=== PATIENT | female | born 1975 | race Caucasian/White ===

== ENCOUNTER 2018-11-16 12:28 | Observation (INO) ==
[2018-11-16] MEDS ORDERED: NITROGLYCERIN ONE (12:50)
[2018-11-16] MEDS ORDERED: ASPIRIN ONE (12:50)
[2018-11-16] MEDS ORDERED: ASPIRIN PO ONE (13:14)
[2018-11-16] MEDS: NITROGLYCERIN SL PRN ×2 (13:15→13:20)
--- NOTE | 2018-11-16 13:28 | EKG Report ---
Test Performed on : 11/16/2018 12:36:08 PM Test Reason : chest pain Blood Pressure : / mmHG Vent. Rate : 088 BPM Atrial Rate : 088 BPM P-R Int : 142 ms QRS Dur : 056 ms QT Int : 346 ms P-R-T Axes : 031 034 044 degrees QTc Int : 418 ms Normal sinus rhythm. Low voltage QRS Septal infarct (cited on or before 22-OCT-2014) Abnormal ECG When compared with ECG of 07-MAY-2018 08:13, Serial changes of Septal infarct present Unconfirmed Result
--- NOTE | 2018-11-16 13:53 | Diag Imaging Result Doc PS360 ---
EXAM: CHEST-2 VIEWS 11/16/2018 HISTORY: chest pain TECHNIQUE: PA and lateral chest COMMENT: There is no evidence of acute cardiac or pulmonary disease. There are sternotomy wires. IMPRESSION: Stable since 05/07/2018. Electronically signed by Hector Mccracken 11/16/2018 1:50 PM
[2018-11-16 14:06] LABS: BASO# 0.03 X1000 (0.0-0.2); BASO% 0.4 % (0.0-0.8); EOS# 0.22 X1000 (0.0-0.7); EOS% 2.6 % (0.0-10.0); HEMATOCRIT 37.5 % (37.0-47.0); HEMOGLOBIN 12.5 g/dL (12.0-16.0); LYMPH# 2.16 X1000 (1.2-3.4); LYMPH% 25.8 % (20.5-51.1); MCH 30.3 PG (27-31); MCHC 33.3 g/dL (33-37); MONO% 8.4 % (1.7-9.3); MPV 10.4 FL (7.4-10.4); NEUT# 5.27 X1000 (1.4-6.5); NEUT% 62.8 % (42.2-75.2); PLT 401 X1000 (130-400); RBC 4.12 XMIL (4.2-5.4); RDW 12.3 % (11.5-14.5); WBC 8.38 X1000 (4.8-10.8)
[2018-11-16 14:45] LABS: AGAP 14; ALB/GLOB RATIO 1.8; ALBUMIN 4.7 g/dL (3.5-5.0); ALKALINE PHOSPHATASE 59 U/L (32-104); BUN 7 mg/dL (8-22); CALCIUM 9.8 mg/dL (8.8-10.2); CHLORIDE 105 mmol/L (98-107); CK PROFILE 86 U/L (24-173); COSMO 280; CREATININE 0.7 mg/dL (0.5-0.9); ESTIMATED GFR > 60; GLUCOSE 119 mg/dL (70-104); GOT 22 U/L (10-30); GPT 30 U/L (10-36); POTASSIUM 4.7 mmol/L (3.5-5.1); SODIUM 141 mmol/L (136-145); TCO2 22 mmol/L (25-35); TOTAL BILIRUBIN 0.28 mg/dL (0.20-1.00); TOTAL PROTEIN 7.3 g/dL (6.3-8.3)
[2018-11-16 15:58] LABS: INR 0.93; PROTIME 13.3 Seconds (11.0-16.0)
[2018-11-16 16:07] LABS: PTT 27.4 Seconds (22.3-41.8)
[2018-11-16] MEDS ORDERED: TYLENOL PO PRN (16:55)
[2018-11-16] MEDS ORDERED: ZOFRAN IV PRN (16:55)
--- NOTE | 2018-11-16 19:29 | HISTORY AND PHYSICAL ---
CHIEF COMPLAINT: Chest pain. HISTORY OF PRESENT ILLNESS: A 43-year-old female with a past medical history of coronary artery disease, status post CABG; double bypass back in 2014. Apparently she had left main disease of 97%. Also, history of right leg DVT back in 2011 that required Coumadin therapy at that time. Also history of diabetes, back pain, hypothyroidism, GERD, dyslipidemia. Recently she had an endoscopic exam as an outpatient that apparently showed gastritis. She now presents with complaints of pressure-like chest pain that started around 12:00 today. She was doing minimal physical activity. The pain lasted for 1 hour, and actually got better after getting treatment with nitroglycerin. When she was in pain she took her blood pressure at home and it was around 157/89. The pain radiated to her neck and it was between her shoulder blades, associated with dizziness, shortness of breath and palpitations. She also stated probably she had some nausea in the morning. In the emergency department the troponin was negative x1, but we will continue checking the troponin again. EKG showed normal sinus rhythm, low voltage, but I do not see any ST changes at this moment. I will repeat an EKG in the morning. Laboratory is grossly normal. Chest x-ray stable. I will admit the patient. I will do serial CKs and troponin. I will repeat an EKG in the morning. I will continue with her home medications, and hopefully we can get a new stress test in the morning. Her previous stress test was normal a year ago, and she has been having multiple stress tests done before. PHYSICAL EXAMINATION: VITAL SIGNS: Temperature 98.1 degrees, pulse 84, respiratory rate 18, blood pressure 103/71, oxygen saturation 99% on room air. HEENT: Head normocephalic. No trauma. PERRLA. NECK: Supple. No JVD. No masses. Central trachea. CHEST: Clear to auscultation. No wheezing. No rales. ABDOMEN: Soft, nontender, nondistended. No hepatosplenomegaly. CARDIOVASCULAR: RRR. No murmurs. EXTREMITIES: No edema. No clubbing, no cyanosis. NEUROLOGICAL: The patient is completely alert and oriented x3. No focal deficits. REVIEW OF SYSTEMS: The patient has been complaining of some nasal discharge for the past couple days. All the 14-point review of systems were reviewed, all of them negative except as per HPI. The patient denies weight changes, headache, vomiting or diarrhea. PAST MEDICAL HISTORY: Chronic pain syndrome; seasonal allergies; anxiety; diabetes; coronary artery disease with CABG in 2015, I believe 2-vessel disease at that time; GERD; hypothyroidism; hyperlipidemia; history of DVT at the level of the right leg back in 2011, treated with Coumadin; recent endoscopy that showed gastritis. PAST SURGICAL HISTORY: Cholecystectomy, partial hysterectomy, lower back surgery, CABG x2 in 2015. SOCIAL HISTORY: She used to be a smoker, but she quit smoking in 2000. No alcohol. No drugs. She is . FAMILY HISTORY: Father with lung cancer, at the age of 60. Mother with coronary artery disease, hypertension. Grandfather at the age of 39 on her mother's side of the family with an MS. Also a great-grandfather at the age of 50 with MS as well. ALLERGIES: She is allergic to nitrofurantoin; phenazopyridine; morphine, apparently morphine causes hallucinations; adhesive tape; Pyridium. HOME MEDICATIONS: Ramipril 2.5 mg p.o. daily; aspirin 81 mg p.o. daily; Lipitor 20 mg p.o. daily; Synthroid 100 mcg p.o. daily; not sure about omeprazole and Janumet, pending medication reconciliation. LABORATORY DATA: WBC 8.3, hemoglobin 12.5, hematocrit 37.5, platelets 401,000. Sodium 141, potassium 4.7, chloride 105, bicarbonate 22, BUN 7, creatinine 0.7, glucose 119, calcium 9.8, AST 22, ALT 30, alkaline phosphatase 59. Troponin negative x1. Albumin 4.7. ASSESSMENT AND PLAN: 1. Pressure-like chest pain. This patient has a strong history of coronary artery disease, status post coronary artery bypass graft in 2014. She had a stress test done a year ago that was negative. Since then she has not had any kind of chest pain until today. I will do serial troponins, CK and electrocardiogram in the morning. I will probably get Cardiology Department in the morning to evaluate this patient. I will consult Cardiology, given her cardiac history and family history as well. She follows with Dr. Connolly as an outpatient, but she has not seen him for at least 1 year. I will get a stress test in the morning. 2. Diabetes. Continue to pattern blood sugar and sliding scale insulin. 3. Hypothyroidism. Continue with Synthroid. 4. Hyperlipidemia. Continue with statin. 5. Anxiety. We will monitor. 6. Deep venous thrombosis prophylaxis with Lovenox. cc: Ronald Renteria MD
[2018-11-16] MEDS: HUMALOG SUBQ SCH (21:00)
[2018-11-17] MEDS ORDERED: SYNTHROID PO SCH (07:00)
[2018-11-17 07:08] LABS: HEMOGLOBIN 11.8 g/dL (12.0-16.0); MCH 30.6 PG (27-31); MCHC 32.8 g/dL (33-37); MCV 93.3 FL (81-99); MPV 10.1 FL (7.4-10.4); RBC 3.86 XMIL (4.2-5.4); RDW 12.3 % (11.5-14.5); WBC 8.04 X1000 (4.8-10.8)
--- NOTE | 2018-11-17 07:30 | EKG Report ---
Test Performed on : 11/17/2018 06:58:48 AM Test Reason : chest pain Blood Pressure : / mmHG Vent. Rate : 064 BPM Atrial Rate : 064 BPM P-R Int : 146 ms QRS Dur : 072 ms QT Int : 416 ms P-R-T Axes : 022 049 069 degrees QTc Int : 429 ms Normal sinus rhythm. Low voltage QRS Septal infarct (cited on or before 22-OCT-2014) Abnormal ECG When compared with ECG of 16-NOV-2018 12:36, (Unconfirmed) Questionable change in initial forces of Septal leads Nonspecific T wave abnormality, worse in Anterior leads Confirmed by Lilliam MONTANO, Tom ([id number]) on 11/17/2018 8:54:36 AM
[2018-11-17 07:45] LABS: AGAP 15; ALB/GLOB RATIO 1.5; ALKALINE PHOSPHATASE 50 U/L (32-104); BUN 10 mg/dL (8-22); CALCIUM 9.2 mg/dL (8.8-10.2); CHLORIDE 106 mmol/L (98-107); COSMO 282; CREATININE 0.6 mg/dL (0.5-0.9); ESTIMATED GFR > 60; GLUCOSE 122 mg/dL (70-104); GOT 19 U/L (10-30); GPT 26 U/L (10-36); POTASSIUM 4.4 mmol/L (3.5-5.1); SODIUM 141 mmol/L (136-145); TCO2 20 mmol/L (25-35); TOTAL BILIRUBIN 0.47 mg/dL (0.20-1.00); TOTAL PROTEIN 6.7 g/dL (6.3-8.3)
[2018-11-17] MEDS: HUMALOG SUBQ SCH ×3 (08:55→15:55)
[2018-11-17] MEDS ORDERED: LOVENOX SUBQ SCH (09:00)
[2018-11-17] MEDS ORDERED: ASPIRIN EC PO SCH (09:00)
[2018-11-17] MEDS ORDERED: PRILOSEC PO SCH (09:00)
[2018-11-17] MEDS ORDERED: LIPITOR PO SCH (09:00)
--- NOTE | 2018-11-17 09:50 | PROGRESS NOTE ---
DATE: 11/17/2018 SUBJECTIVE: This patient is feeling good today, some chest discomfort this morning, but she believes it is because of the nasal congestion that she has been having. I have requested a stress test to be done today. Cardiology Department has been consulted. Troponin's negative, and I do not see any EKG changes. OBJECTIVE: Vital Signs: Temperature 98.3 degrees, pulse 68, respiratory rate 16, blood pressure 85/65 and oxygen saturation 100% on room air. HEENT: Head normocephalic. No trauma. PERRLA. Neck: Supple. No JVD. No masses. Central trachea. Chest: Clear to auscultation. No wheezing. No rales. Abdomen: Soft, nontender, nondistended. No hepatosplenomegaly. Extremities: No edema. No clubbing. No cyanosis. Neurologic: Patient is alert and oriented x3. No focal deficits. LABORATORY: WBC 8.0, hemoglobin 11.8, hematocrit 36, and platelet 317,000. Sodium 141, potassium 4.4, chloride 106, bicarbonate 20, BUN 10, creatinine 0.6, glucose 122, and calcium 9.2. Troponin's negative x3. ASSESSMENT AND PLAN: 1. Pressure-like chest pain, pending a stress test today. She has not been complaining of strong symptoms during the night. No acute events. Troponin's have been negative x3. Given her medical presentation and past medical history, I have consulted Cardiology Department for evaluation. 2. Type 2 diabetes. Continue with pattern of blood sugar and sliding scale insulin. 3. Hypothyroidism. Continue with Synthroid. 4. Hyperlipidemia. Continue with statins. 5. Anxiety. We will monitor. 6. Deep vein thrombosis prophylaxis with Lovenox. cc: Ronald Renteria MD
--- NOTE | 2018-11-17 12:05 | PROVIDER DOCUMENTATION ---
This chart was entered by Radha Rojas Scribe, acting as scribe for Rik Powell MD. HPI-Chest Pain - General Chief Complaint: Chest Pain Stated Complaint: CHEST TIGHTNESS,SOB,HIGH BP Time Seen by Provider: 11/16/18 12:44 Source: patient Allergies/Adverse Reactions: Patient Allergies Allergy/AdvReac Type Severity Reaction Status Date / Time nitrofurantoin Allergy Unknown Unknown Verified 05/07/18 04:51 [From Macrobid] nitrofurantoin Allergy Unknown Unknown Verified 05/07/18 04:51 macrocrystalline * [From Macrobid] phenazopyridine HCl * Allergy Unknown Unknown Verified 05/07/18 04:51 [From Pyridium] morphine Allergy Unknown Verified 05/07/18 04:51 adhesive tape AdvReac RASH Verified 05/07/18 04:51 Home Medications: Home Medication List Medication Instructions Recorded Confirmed Last Taken Type Aspirin EC 81 mg PO DAILY 10/20/15 10/13/17 05/22/16 07:00 History Atorvastatin Calcium 20 mg PO DAILY 10/20/15 10/13/17 05/22/16 History Levothyroxine [Synthroid] 75 microgm PO DAILY 10/20/15 10/13/17 05/22/16 07:00 History Omeprazole 40 mg PO DAILY 10/13/17 10/13/17 Unknown History Sitagliptin Phos/Metformin HCl 1 tab PO DAILY 10/13/17 10/13/17 Unknown History [Janumet 50-500 mg Tablet] - History of Present Illness-CP Nature of Presenting Problem: 43 yof presents to the ed with c/o chest pain onset 30 min [employer]. pt on exam is nontoxic in appearance and has hx of CABG Location: reports: substernal Chest Pain Radiation: reports: no radiation Quality of Pain: reports: tightness Severity in ED: moderate Onset/Duration: 1/2 hour ago Timing: still present, improving Context/Activities at Onset: reports: light activity Modifying Factors: improves with: nothing. worse with: exercise Associated Symptoms: reports: shortness of breath. denies: diaphoresis, fever/chills, headache, nausea, vomiting, weakness Nitro Today/Relief: 0.4 mg x 1, provided by ED (sublingual) Aspirin Treatment Today: 325 mg x 1, provided by ED Similar Symptoms Previously?: Yes Recently Seen Here or By Another Healthcare Provider: Yes Review of Systems - Adult - REVIEW OF SYSTEMS - ADULT Constitutional: denies: chills, fever Eyes: reports: no symptoms reported Ears, Nose, Mouth & Throat: reports: no symptoms reported Cardiovascular: reports: see HPI, chest pain. denies: palpitations, syncope Respiratory: reports: shortness of breath. denies: cough, wheezing Gastrointestinal: denies: abdominal pain, diarrhea, nausea, vomiting Genitourinary: reports: no symptoms reported Musculoskeletal: denies: back pain, neck pain Integumentary: reports: no symptoms reported Neurological: denies: dizziness/vertigo, headache/migraines Psychiatric: reports: no symptoms reported Endocrine: reports: no symptoms reported Hematologic/Lymphatic: reports: no symptoms reported Allergic/Immunologic: reports: no symptoms reported All Other Systems: Reviewed and Negative Past History - Adult - PAST MEDICAL HISTORY-ADULT Review of Records: reports: Old Records Reviewed, Nursing Assessment Review, Medications Reviewed, Social history reviewed & non-contributory. Major Childhood Illnesses: reports: denies history Cardiovascular: reports: blood clots, CAD, HTN, hyperlipidemia, MD, other (Protein S deficiency ) Respiratory: reports: denies history Gastrointestinal: reports: denies history Obstetrical/Gynecological: reports: denies history Genitourinary: reports: chronic UTI's (improved after stopping caffeine use) Musculoskeletal: reports: denies history Neurological: reports: denies history Psychiatric: reports: anxiety, depression Endocrine/Immune: reports: Diabetes, thyroid disorder Other Conditions: reports: denies history - PRIOR SURGERIES/PROCEDURES Surgical/Procedure History: reports: CABG, cholecystectomy, hysterectomy, back/neck (SI joint fusion on right) - IMMUNIZATION STATUS Childhood Immunizations: See Nurse Assessment Flu Vaccine: See Nurse Assessment - FAMILY HISTORY Family History: reviewed, not pertinent - SOCIAL HISTORY Smoking: quit less than 1 year Substance Use: denies Living Situation: family Physical Exam-General - PHYSICAL EXAM-ADULT Initial Vital Signs Reviewed: Yes - CONSTITUTIONAL General Appearance: appears well, alert, no apparent distress - EYES Eyes: PERRL/EOMI, pink conjunctivae - HEAD, EARS, NOSE, MOUTH & THROAT HENMT: moist mucous membranes, normal ENT inspection - NECK Neck: non-tender, full range of motion, supple, normal inspection - RESPIRATORY Respiratory: chest non-tender, lungs clear, normal breath sounds - CARDIOVASCULAR Cardiovascular: normal peripheral pulses, regular rate, rhythm, other (well healed cabg scar on chest) - GASTROINTESTINAL (ABDOMEN) Abdominal Exam: normal bowel sounds, non tender, soft, no organomegaly, no pulsatile mass - LYMPHATIC Lymphatic: no adenopathy - MUSCULOSKELETAL Back Exam: normal inspection, no CVA tenderness, no vertebral tenderness Extremity: normal range of motion, non-tender, normal gait, normal inspection, no pedal edema, no calf tenderness, normal capillary refill, pelvis stable - SKIN Integumentary: normal color, normal turgor, warm/dry - NEUROLOGIC Neurologic: grossly normal, no motor/sensory deficits - PSYCHIATRIC Psych/Mental Status: normal mood/affect, normal thought content, normal thought process, oriented x 3 - HEART Score HEART Score: History: Slightly Suspicious HEART Score: ECG: Non-Specific Repolarization Disturbance/LBBB/PM HEART Score: Age: < or = 45 Years HEART Score: Risk Factors for Atherosclerotic Disease: 1 or 2 Risk Factors HEART Score: Troponin: < or = Normal Limit Total HEART Score:: 2 Progress - PLAN OF CARE/RESULTS Progress/Plan/Lab Results: Vital Signs - 8 hr 11/16/18 13:25 Temperature 98.1 F Pulse Rate 84 Respiratory Rate 18 Blood Pressure 103/71 O2 Sat by Pulse Oximetry 99 Laboratory Results - last 24 hr 11/16/18 11/16/18 11/16/18 11:17 11:17 11:17 WBC 8.38 RBC 4.12 L Hgb 12.5 Hct 37.5 MCV 91.0 MCH 30.3 MCHC 33.3 RDW Std Deviation 12.3 Plt Count 401 H MPV 10.4 Immature Gran % (Auto) 0.0 Neut % (Auto) 62.8 Lymph % (Auto) 25.8 Tama % (Auto) 8.4 Eos % (Auto) 2.6 Baso % (Auto) 0.4 Immature Gran # (Auto) 0.00 Neut # (Auto) 5.27 Lymph # (Auto) 2.16 Tama # (Auto) 0.70 H Eos # (Auto) 0.22 Baso # (Auto) 0.03 PT INR PTT (Actin FS) Sodium 141 Potassium 4.7 Chloride 105 Carbon Dioxide 22 L Anion Gap 14 BUN 7 L Creatinine 0.7 Estimated GFR/1.73 m2 > 60 BUN/Creatinine Ratio 10 Glucose 119 H Calculated Osmolality 280 Calcium 9.8 Total Bilirubin 0.28 AST 22 ALT 30 Alkaline Phosphatase 59 Creatine Kinase 86 Troponin T < 0.010 Total Protein 7.3 Albumin 4.7 Globulin 2.6 Albumin/Globulin Ratio 1.8 11/16/18 11:17 WBC RBC Hgb Hct MCV MCH MCHC RDW Std Deviation Plt Count MPV Immature Gran % (Auto) Neut % (Auto) Lymph % (Auto) Tama % (Auto) Eos % (Auto) Baso % (Auto) Immature Gran # (Auto) Neut # (Auto) Lymph # (Auto) Tama # (Auto) Eos # (Auto) Baso # (Auto) PT 13.3 INR 0.93 PTT (Actin FS) 27.4 Sodium Potassium Chloride Carbon Dioxide Anion Gap BUN Creatinine Estimated GFR/1.73 m2 BUN/Creatinine Ratio Glucose Calculated Osmolality Calcium Total Bilirubin AST ALT Alkaline Phosphatase Creatine Kinase Troponin T Total Protein Albumin Globulin Albumin/Globulin Ratio Orders Category Date Time Status CHEST-2 VIEWS [RAD] Stat Exams 11/16/18 13:15 Completed CBC WITH ELECTRONIC DIFF [HEME] Stat Lab 11/16/18 11:17 Completed CK PROFILE [SP CHEM] Stat Lab 11/16/18 11:17 Completed COMPREHENSIVE METABOLIC PANEL [CHEM] Stat Lab 11/16/18 11:17 Completed PROTIME WITH INR [COAG] Stat Lab 11/16/18 11:17 Completed PTT [COAG] Stat Lab 11/16/18 11:17 Completed TROPONIN T Stat Lab 11/16/18 11:17 Completed Aspirin Med 11/16/18 12:50 Discontinued 325 mg .ROUTE .STK-MED ONE Aspirin Med 11/16/18 13:14 Discontinued 325 mg PO NOW ONE Nitroglycerin Sl [Nitroglycerin] Med 11/16/18 12:50 Discontinued 0.4 mg .ROUTE .STK-MED ONE Nitroglycerin Sl [Nitroglycerin] Med 11/16/18 13:15 Active 0.4 mg SL Q5M PRN PRN EKG [EKG] Stat Ther 11/16/18 13:15 Draft Result Diagrams: 11/16/18 11:17 11/16/18 11:17 - REASSESSMENT Reassessment #1 Time Reassessed: 13:02 Status: unchanged Reassessment #2 Time Reassessed: 15:26 Status: improving - XRAY 1 XRAY: Bilateral XRAY Study: Chest Impression: See EMR Report (EXAM: CHEST-2 VIEWS 11/16/2018 HISTORY: chest pain TECHNIQUE: PA and lateral chest COMMENT: There is no evidence of acute cardiac or pulmonary disease. There are sternotomy wires. IMPRESSION: Stable since 05/07/2018. Electronically signed by Hector Mccracken 11/16/2018 1:50 PM 11/16/18 1350 Interpreting Physician: Hector Mccracken MD Dictated Date/Time: 11/16/18 1349 cc: Rik Powell MD; Arabella Thorne MD) - CONSULTS/PCP/HOSPITALIST Notification #1 *Consult/PCP/Hospitalist*: hospitalist Time Discussed: 15:32 Reason/Comments: chest pain Consult Disposition: Admit Departure - Departure Date of Disposition Decision: 11/16/18 Time of Disposition Decision: 15:25 DIAGNOSIS: Chest pain Qualifiers: Chest pain type: unspecified Qualified Code(s): R07.9 - Chest pain, unspecified Disposition: ADMITTED INPATIENT 09 Certified Medical Emergency: Emergent Condition: Stable Additional Freetext Instructions: ED Follow Up Instructions: You have been treated by a care provider in the Emergency Department. These instructions are being provided to you so you can have an understanding of how to care for yourself upon discharge. Upon discharge from the Emergency Department, you are responsible for making arrangements for follow-up care by a physician of your choice. Take all prescribed medications as directed. Return to the Emergency Department immediately for any new or worsening symptoms. You may call the Physician Referral phone number at [phone] to obtain a list of Physicians who are taking new patients. Referrals and Follow-Ups: Arabella Thorne MD [Primary Care Provider] - - Critical Care Note This patient required my direct & personal management of CC.: No Attestation - Physician/ FLACO Attestation Patient care was provided by Advanced Practice Provider:: No The physician spent face to face time with patient:: Yes Advanced Practice Provider documentation review:: Supervising physician onsite and consulted in the evaluation and care of this patient. The physician did have a face to face encounter with the patient. This chart was documented by the indicated scribe, (Radha Rojas Scribe) and accurately reflects the services I performed and decisions made by me, Rik Neil MD, as attested by the provider's signature.
[2018-11-17] MEDS ORDERED: LEXISCAN ONE (13:07)
--- NOTE | 2018-11-17 15:32 | CARDIOLOGY CONSULTATION ---
DATE: 11/17/2018 REQUESTING PHYSICAL: Hospitalist Service. PRIMARY CARE DOCTOR: Dr. Kayce Thorne in [place]. PRIMARY FORMULA ROOM WORKER: Dr. Mc Connolly. CHIEF COMPLAINT: Chest pain. HISTORY: Mrs. Geiger is a 44-year-old female who was in her usual state of health up until yesterday, WednesdayNovember 16. She was folding clothes at home in her bedroom and then all of a sudden she felt an intense, overwhelming sensation of sweating with some nausea and dizziness. This was followed by a pressure sensation in the chest and some dyspnea. Her blood pressure was checked at home and it was first 168/80 and then 180/90. By the time she came into the emergency room they documented pressures in the order of 112/73. She was given nitroglycerin and within a total period of approximately 1 hour her symptoms ,including chest discomfort, started to go away. They have checked her troponins a total of 3 times, at 11:17 a.m. yesterday, 9:38 p.m. yesterday, and 1:26 a.m. today. She is no longer having any chest discomfort. Her ECG shows sinus rhythm, low voltage, septal scar. PAST MEDICAL HISTORY: Positive for severe coronary heart disease. Back in November, she underwent a double coronary bypass procedure for severe distal left main stenosis. They did a mammary graft to LAD and a single vein graft to the marginal circumflex. The patient has a history of hypertension, diabetes mellitus type 2, hyperlipidemia, hypothyroidism. She has had some gastritis and she has seasonal allergies. There is a remote history of deep venous thrombosis. PAST SURGICAL HISTORY: She had the coronary bypass surgery in 2014, cholecystectomy, hysterectomy, and bladder sling. SOCIAL HISTORY: She is . She has 2 children, ages 23 and 17. She quit smoking, used to smoke in the past. She lives with her . FAMILY HISTORY: Noncontributory. REVIEW OF SYSTEMS: Other than what I have described is really noncontributory. Respiratory, cardiovascular, musculoskeletal, hearing, visual, GI tract, genitourinary, skin, psychiatric, neurological, immunological, hematological unremarkable. HOME MEDICATIONS: At the time of this admission include aspirin 81 at bedtime, atorvastatin 20 at bedtime, levothyroxine 100 mcg daily, omeprazole 40 mg daily, ramipril 2.5 daily. ALLERGIES: She reports being allergic to nitrofurantoin, Pyridium, morphine, and adhesive tape. PHYSICAL EXAMINATION: Vital signs: Blood pressure right now is 96/69, temperature 97.8 degrees, pulse 61, respirations 17. General: She is awake, alert, oriented, in no distress. HEENT: Unremarkable. Chest: Clear to auscultation and percussion. Heart: Sounds are regular rhythmic. No gallop or murmur. Abdomen: Soft, nontender. No masses. No hepatomegaly. Extremities: Good pulses. No peripheral edema. Neurologic: Follows commands. Moves 4 extremities. Last visit with Dr. Connolly was back in October of last year. She had really no issues other than occasional chest tightness. BLOOD WORK: White cell count is 8,000, hemoglobin 11.8, hematocrit 36%. Sodium 141, potassium 4.4, BUN 10, creatinine 0.6. TSH, albumin, globulin, liver function tests all within normal. A chest x-ray was obtained early yesterday and it showed no abnormalities. IMPRESSIONS: 1. Patient presenting with chest pain. This is somewhat atypical although it could also indicate angina pectoris. 2. Hypertension. 3. Previous coronary bypass surgery x2 for left main stenosis in 2014. 4. History of diabetes mellitus type 2. 5. Remote history of deep venous thrombosis. RECOMMENDATION: At this point in time, I would suggest to review the results of the stress test that was requested by the hospitalist service and if unremarkable the patient may be discharged home with instructions to take nitroglycerin as needed. At this point in time, I do not believe the patient requires invasive cardiac evaluation. I will be very happy to see her down the road, unless the stress test reveals a major abnormality. The patient may be discharged home with instructions to follow up with Dr. Mc Connolly within the next few days. cc: Jonatan Burdick MD [facility] CENTERJesus
--- NOTE | 2018-11-17 15:46 | Diag Imaging Result Document ---
PROCEDURE NAME: MYOCARDIAL PERF SCAN, STR/REST - 11/16/2018 INDICATION: History of CABG. Chest pain. PROCEDURES PERFORMED: 1. Lexiscan stress. 2. One-day stress/rest myocardial perfusion imaging. PROCEDURE IN DETAIL: Ms. Geiger was brought to the nuclear laboratory and had a resting study with injection of 14.2 mCi of technetium-99m sestamibi with usual imaging protocol utilized. She subsequently was brought back and had a Lexiscan stress. At peak stress, was injected with 44.7 mCi of technetium-99m sestamibi with usual imaging protocol utilized. FINDINGS: LEXISCAN STRESS RESULTS: 1. Baseline EKG shows sinus rhythm. 2. Lexiscan stress does not demonstrate any clear evidence of ischemic related EKG changes or significant arrhythmias during the study. Occasional PVCs. PERFUSION IMAGING RESULTS: 1. No evidence of abnormal extracardiac uptake. 2. TID ratio 0.96. 3. Perfusion imaging demonstrates a very small size, mild intensity defect at the apex. This is likely suggestive of apical thinning artifact. This is fixed. There is no evidence of ischemia on this study. 4. There is a normal ejection fraction of 81%. The end-diastolic volume is 79, end-systolic volume is 15. Wall motion is suggestive of previous bypass surgery. cc: MD Delia Trinidad CRNP
[2018-11-17 16:59] VITALS: BP 119/65
--- NOTE | 2018-11-18 16:23 | DISCHARGE SUMMARY ---
ADMISSION DATE: 11/16/2018 DISCHARGE DATE: 11/17/2018 DISCHARGE DIAGNOSES: 1. Pressure-like chest pain in a patient with a past medical history of coronary artery disease status post coronary artery bypass grafting, normal stress test. 2. Type 2 diabetes. 3. Hypothyroidism. 4. Hyperlipidemia. 5. Anxiety. PROCEDURES PERFORMED: 1. EKG dated 11/16/2018. Results normal sinus rhythm, low voltage. 2. Chest x-ray dated 11/16/2017 - impression stable no acute pulmonary problems. 3. Nuclear medicine stress test dated 11/17/2018. Results Lexiscan stress test that does not demonstrate any clear evidence of ischemic changes. Wall motion is suggestive of prior a previous bypass surgery. HOSPITAL COURSE: 43-year-old female with a past medical history of coronary artery disease, status post CABG a double bypass back in 2014, apparently she had left main disease of 97%, also history of right DVT back in 2011 that required Coumadin therapy at that time, history of diabetes, back pain, hypothyroidism, GERD, dyslipidemia. Recently she had an endoscopic exam as an outpatient that apparently showed gastritis. Now presented to the emergency department with a chief complaint of pressure-like chest pain that started around noon on the day of admission on 11/16/2017 when she was doing minimal physical activity. The pain lasted an hour and actually got better after getting treatment with nitroglycerin. As per the patient when she had the pain, she took the blood pressure and it was 157/89. The pain radiated to her neck and between her shoulder blades, associated with dizziness, shortness of breath and palpitation. Also she was complaining of some nausea in the morning. In the emergency department troponin were negative x1 but we continued checking the troponin two more times and they were negative. EKG with no changes. Cardiology department was consulted. We did a stress test that was not showing any acute problem. Cardiology Department recommended to use nitroglycerin as needed at home but continue with her same medications that she was taking at home as well. I explained that to the patient, she agree with the treatment and the plan. She will need to follow up with Dr. Connolly in 2 weeks, cardiology department. Upon discharge, the patient was in a stable medical condition, tolerating p.o. with no chest pain or other problems. OBJECTIVE: Vital Signs: Temperature 97.8 degrees, pulse 85, respiratory rate 18, blood pressure 119/65, oxygen saturation 98 on room air. HEENT: Head normocephalic, no trauma PERRLA. Neck: Supple. No JVD. No masses. Central trachea. Chest: Clear to auscultation. No wheezing. No rales. Abdomen: Soft, nontender, nondistended. No hepatosplenomegaly. Extremities: No edema, no clubbing, no cyanosis. Neurological: The patient is alert and oriented x3. No focal deficits. LABORATORY: WBC 8 8.0, hemoglobin 11.8, hematocrit 36, platelets 317,000. Sodium 141, potassium 4.4, chloride 106, bicarbonate 20, BUN 10, creatinine 0.6, glucose 122, calcium 9.2. Troponin negative x3. Albumin 4. DISCHARGE MEDICATION: 1. Omeprazole 40 mg p.o. daily. 2. Aspirin 81 mg p.o. at bedtime. 3. Synthroid 100 mcg p.o. daily. 4. Atorvastatin 20 mg p.o. at bedtime. 5. Ramipril 2.5 mg p.o. daily. 6. Nitroglycerin 0.5 mg sublingual every 5 minutes as needed. TIME SPENT: Time discharging this patient 32 minutes. cc: Ronald Renteria MD
== END 2018-11-17 17:25 | disposition home or self-care (01) ==
LOC: ED 12:28 → INTOOBSV 17:32 → EDIPHOLD 17:32 → 4N 11-17 12:10 → EDIPHOLD 11-17 12:17
PROVIDERS: ATTEND Internal Medicine
CPT/HCPCS: 71020; 71046; 78452; 80053; 82550; 82948; 84443; 84484; 85025; 85027; 85610; 85730; 93005; 93017; 99285; A9270; A9500; J2785; XXXXX